=== PATIENT | female | born 1945 | race Caucasian/White ===

== ENCOUNTER 2021-04-16 18:43 | Emergency (ER) | payer OTHER, BC ==
[~2021-04-16] VITALS: Ht 149.9 cm; Wt 48.5 kg
[~2021-04-16 18:43] MED LIST: DENO60DI SQ; EFF37 PO; LEVO75TA7 PO; PANT20TA2 PO; SIMV20TA2 PO
[2021-04-16 19:35] VITALS: BP_SYST 151
[2021-04-16] MEDS ORDERED: LIDOCAINE 1% 10 MG/ML, 20 ML MDV INJ ONE (20:00)
[2021-04-16] MEDS ORDERED: BACITRACIN 1 GM OINT TP ONE (20:00)
[2021-04-16] MEDS ORDERED: DIPH-TET-PERTUS Vaccine 0.5 ML VIAL (ADACEL) I.M. ONE (20:00)
--- NOTE | 2021-04-16 20:05 | NUR ---
SEEN / ASSESSED BY DR SOLORZANO IN ROOM 7.
--- NOTE | 2021-04-16 20:30 | NUR ---
S/P LAC REPAIR PT AAOX3 FAM AT BED SIDE, VOICES NO C/O PAIN OR DISCOMFORT. DAUGHTER/ GRANDDAUGHTER AT BED SIDE EATING A SNAK W/ PT. NAD NOTED
--- NOTE | 2021-04-16 20:38 | NUR ---
Laceration repair done, 2 stitches to right lateral laceration.
[2021-04-16 21:05] VITALS: BP_SYST 135
--- NOTE | 2021-04-16 21:05 | NUR ---
Patient and family(daughter/ granddaughter)given written and verbal discharge instructions and verbalizes understanding. ER MD discussed with patient the results and treatment provided. Patient in stable condition. ID arm band removed. Patient educated on pain management and to follow up with PMD. Pain Scale 0/10.Opportunity for questions provided and answered. Medication side effect fact sheet provided. Pt able to ambulate w/ steady gait, left w/family, NAD noted.
== END 2021-04-16 21:05 | disposition home or self-care (01) ==
LOC: SED 18:43
DX: S01.01XA Laceration without foreign body of scalp, initial encounter (principal); F03.90 Unspecified dementia, unspecified severity, without behavioral disturbance, psychotic disturbance, mood disturbance, and anxiety; Z79.899 Other long term (current) drug therapy; W01.198A Fall on same level from slipping, tripping and stumbling with subsequent striking against other object, initial encounter; Y93.89 Activity, other specified; Y92.89 Other specified places as the place of occurrence of the external cause; Y99.8 Other external cause status
CPT/HCPCS: 70450-TC; 76376; 90715; 99284